=== PATIENT | male | born 1975 | race Caucasian/White ===

== ENCOUNTER 2017-03-01 14:38 | Emergency (ER) | payer SELFPAY ==
[2017-03-01] MEDS ORDERED: KETOROLAC TROMETHAMINE 30 MG/1ML VIAL ONE (14:58)
[2017-03-01] MEDS ORDERED: ONDANSETRON HCL/PF 4 MG/ 2ML VIAL ONE (14:58)
[2017-03-01] MEDS ORDERED: 0.9 % SODIUM CHLORIDE 1,000 ML IV ONE (14:58)
[2017-03-01] MEDS: KETOROLAC TROMETHAMINE 30 MG/1ML VIAL IVP ONE (15:00)
[2017-03-01] MEDS: 0.9 % SODIUM CHLORIDE 1,000 ML IV ONE (15:00)
[2017-03-01 15:09] LABS: BASOPHILS % 0.5 (0.0-1.5); MEAN CORPUSCULAR HEMOGLOBIN 31.5 pg (28.0-34.0); MEAN CORPUSCULAR VOLUME 90.7 fl (80.0-100.0); MONOCYTES % 4.9 % (0.0-11.0); NEUTROPHILS # 14.2 # k/uL (1.4-7.7)
[2017-03-01 15:21] LABS: eGFR (African) > 60; eGFR (Non-African) > 60
[2017-03-01] MEDS: ONDANSETRON HCL/PF 4 MG/ 2ML VIAL IVP ONE (15:53)
--- NOTE | 2017-03-01 15:57 | ED Physician Documentation ---
Abdominal Pain - HISTORIAN Historian: patient - HPI Stated Complaint: LLQ pain Chief Complaint: Abdominal Pain Onset: hours (This morning) Duration: worse Timing: worse Context: denies: out of country travel, bad food, recent trauma Severity: severe Quality: pain Associated Symptoms: nausea, vomiting. denies: fever, chills, coffee ground emesis, bloody emesis, diarrhea, bloody stools, grossly bloody stools, mucous, loss of appetite, chest pain, testicular pain, back pain, neck pain, other Exacerbated by: nothing Relieved by: nothing Further Comments: yes (41 year old male patient presents with complaint abdominal pain with nausea and vomiting which started this morning and has become significantly worse. last Bm this morning.) - ROS CONST: no problems GI/: none CVS/RESP: none EYES/ENT: none MS/SKIN/LYMPH: none NEURO/PSYCH: none - SOCIAL HX Smoking History: cigarettes Drug Use: marijuana - FAMILY HX Family History: denies: none - PAST HX Past History: none Ischemic Bowel Risk Factors: none Other History: none Home Medications: Ambulatory Orders Medication Instructions Recorded NK [NK] 03/01/17 Allergies/Adverse Reactions: Allergies Allergy/AdvReac Type Severity Reaction Status Date / Time No Known Allergies Allergy Verified 03/01/17 15:21 - VITAL SIGNS Vital Signs: Vital Signs Temp Pulse Resp BP Pulse Ox 98.7 F 66 20 149/85 98 03/01/17 14:39 03/01/17 14:39 03/01/17 14:39 03/01/17 14:39 03/01/17 14:39 - REVIEWED ASSESSMENTS Nursing Assessment Reviewed: Yes Vitals Reviewed: Yes Progress - Progress Progress: Vomited on arrival. Medicated with zofran, toradol and NS in Er. Pain down to 08/19 Reviewed lab and xray results with patient, recommended transfer for CT. CT machine down at this time. Patient stated "I'll just go tomorrow. I need a work note for today and tomorrow." Explained that was not a safe option, reviewed lab results and educated on differential diagnosis. Patient agrees to transfer via EMS to [facility]. Patient accepted by Dr Riddle to [facility] ER. Medicated for pain for transport. ED Results Lab/Radiology - Lab Results Lab Results: Lab Results 03/01/17 03/01/17 15:05 15:05 WBC 17.30 K/ul H K/ul (4.00-12.00) RBC 4.84 M/ul M/ul (3.90-5.20) Hgb 15.2 g/dL g/dL (12.0-18.0) Hct 43.9 % % (37.0-53.0) MCV 90.7 fl fl (80.0-100.0) MCH 31.5 pg pg (28.0-34.0) MCHC 34.8 g/dL g/dL (30.0-36.0) RDW 13.1 % % (11.3-14.3) Plt Count 259 K/mm3 K/mm3 (130-400) Neut % (Auto) 82.4 % H % (39.0-79.0) Lymph % (Auto) 9.5 % L % (16.0-50.0) [place] % (Auto) 4.9 % % (0.0-11.0) Eos % (Auto) 2.0 % % (0.0-6.8) Baso % (Auto) 0.5 (0.0-1.5) Neut # (Auto) 14.2 # k/uL H # k/uL (1.4-7.7) Lymph # (Auto) 1.6 # k/uL # k/uL (0.6-4.0) [place] # (Auto) 0.8 # k/uL # k/uL (0.0-0.9) Eos # (Auto) 0.3 # k/uL # k/uL (0.0-0.6) Baso # (Auto) 0.1 # k/uL # k/uL (0.0-0.5) Reactive Lymphs % 0.6 % % (0.0-5.0) Reactive Lymphs # 0.1 # k/uL # k/uL (0.0-0.8) Sodium 139 mmol/L mmol/L (137-145) Potassium 4.0 mmol/L mmol/L (3.5-5.1) Chloride 103 mmol/L mmol/L (98-107) Carbon Dioxide 26 mmol/L mmol/L (22-30) BUN 12 mg/dL mg/dL (9-20) Creatinine 1.10 mg/dL mg/dL (0.66-1.25) Est GFR ( Amer) > 60 (60 - ) Est GFR (Non-Af Amer) > 60 (60 - ) Glucose 113 mg/dL H mg/dL (74-106) Calcium 9.2 mg/dL mg/dL (8.4-10.2) Total Bilirubin 0.6 mg/dL mg/dL (0.2-1.3) AST 23 U/L U/L (15-46) ALT 29 U/L U/L (13-69) Alkaline Phosphatase 97 U/L U/L (38-126) Total Protein 7.7 g/dL g/dL (6.3-8.2) Albumin 4.3 g/dL g/dL (3.5-5.0) - Radiology Radiology Impressions: xamination: Obstruction series History: Abdominal discomfort Findings: 3 views obtained of the abdomen. No abnormal dilation of the large or small bowel. Air and stool throughout the large bowel. No suspicious calcification projecting over the renal fossa or the lower pelvic region. Osseous structures are appropriate for age. Impression: No obstruction. No suspicious calcifications by plain film sensitivity. Electronically signed on Mar 01, 2017 3:46:07 PM CDT by: Wayne Bunch - Orders Orders: ED Orders Category Date Time Status Place IV Lock 1T Care 03/01/17 15:02 Active ABDOMEN COMPLETE [RAD] Stat Exams 03/01/17 Ordered CBC/PLATELET/DIFF Stat Lab 03/01/17 15:05 Completed CMP Stat Lab 03/01/17 15:05 Completed UA W/MICRO IF INDICATED Stat Lab 03/01/17 15:02 Ordered Urine drug screen [DRUG SCREEN URINE MEDICAL ONLY] Lab 03/01/17 Ordered Routine 0.9 % Sodium Chloride [Normal Saline] 1,000 ml Med 03/01/17 14:58 Discontinued IV .STK-MED 0.9 % Sodium Chloride [Normal Saline] 1,000 ml Med 03/01/17 15:02 Discontinued IV NOW Ketorolac Tromethamine [Toradol] Med 03/01/17 14:58 Discontinued 30 mg .ROUTE .STK-MED ONE Ketorolac Tromethamine [Toradol] Med 03/01/17 15:02 Discontinued 30 mg IVP NOW ONE Morphine Sulfate [DepoDUR] Med 03/01/17 16:06 Discontinued 4 mg IVP NOW ONE Ondansetron HCl/Pf [Zofran 4 mg/2 ml] Med 03/01/17 14:58 Discontinued 4 mg .ROUTE .STK-MED ONE Ondansetron HCl/Pf [Zofran 4 mg/2 ml] Med 03/01/17 15:14 Discontinued 4 mg IVP NOW ONE Abdominal Pain Physical Exam - Physical Exam General Appearance: moderate distress EENT: eye inspection normal, [place] RESPIRATORY: no resp distress, chest non-tender, breath sounds normal CVS: reg rate & rhythm, heart sounds normal, equal pulses, no murmur, no gallop , PMI nml, no JVD, no friction rub, 24 ABDOMEN: soft, no organomegaly, no abdominal bruit, no distension, tenderness ( LLQ and Left Mid Quad with deep palpation), decreased BS. 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: oriented X3, CN's nml as tested, motor nml, sensation nml Vital Signs: Vital Signs Temp Pulse Resp BP Pulse Ox 98.7 F 66 20 149/85 98 03/01/17 14:39 03/01/17 14:39 03/01/17 14:39 03/01/17 14:39 03/01/17 14:39 Discharge Clincal Impression: Abdominal pain Qualifiers: Abdominal location: left lower quadrant Qualified Code(s): R10.32 - Left lower quadrant pain Leukocytosis Qualifiers: Leukocytosis type: unspecified Qualified Code(s): D72.829 - Elevated white blood cell count, unspecified Hematuria Qualifiers: Hematuria type: unspecified type Qualified Code(s): R31.9 - Hematuria, unspecified Condition: Stable Disposition: 02 XFER SHT-TRM HOSP Decision to Admit: NO Decision Time: 16:06
[2017-03-01] MEDS: MORPHINE SULFATE 4 MG/ML PREFILLED SYR IVP ONE (16:15)
[2017-03-01 16:26] VITALS: BP 141/85
--- NOTE | 2017-03-01 18:49 | Diagnostic Imaging Report ---
CORINNE RODRIGUEZ (OTILIO) - ER [facility] [address] [facility] [address] [place], [place]. [address] Report Submission Date: Mar 01, 2017 3:46:07 PM CDT Patient Study Name: MADALYN FAUSTIN Date: Mar 01, 2017 3:11:56 PM CDT Modality Type: CR Gender: M Description: ABDOMEN : 73 Institution: [facility] Physician: CORINNE RODRIGUEZ (OTILIO) - ER Examination: Obstruction series History: Abdominal discomfort Findings: 3 views obtained of the abdomen. No abnormal dilation of the large or small bowel. Air and stool throughout the large bowel. No suspicious calcification projecting over the renal fossa or the lower pelvic region. Osseous structures are appropriate for age. Impression: No obstruction. No suspicious calcifications by plain film sensitivity. Electronically signed on Mar 01, 2017 3:46:07 PM CDT by: Wayne ABAD
== END 2017-03-01 16:20 | disposition short-term general hospital (02) ==
LOC: ED 14:38
DX: R10.32 Left lower quadrant pain (principal); D72.829 Elevated white blood cell count, unspecified; R31.9 Hematuria, unspecified
CPT/HCPCS: 74020; 80053; 85025; J1885; J2270; J2405; J7030; 96361; 96374; 96375; 99284; S1016